=== PATIENT | female | born 1960 | race Caucasian/White ===

== ENCOUNTER 2017-05-19 11:19 | Inpatient (IN) | payer BC ==
[~2017-05-19] VITALS: Ht 152.4 cm; Wt 67.1 kg
[~2017-05-19 11:19] MED LIST: TRAM50 PO
[2017-05-19] MEDS ORDERED: IOHEXOL 350 MG/ML 10 ML VIAL (for RAD DIAG) IVCONTRAST ONE (11:20)
[2017-05-19 12:09] VITALS: BP 130/101; PULSE 151; RESP 24; TEMP 98.8; O2SAT 100
--- NOTE | 2017-05-19 12:44 | PD ---
HPI . Abdominal pain Chief Complaint: Abdominal Pain Time Seen by Provider: 12:23 Travel History International Travel<30 days: No Contact w/Intl Traveler<30days: No Traveled to known affect area: No History of Present Illness HPI This patient presents with a chief complaint of left-sided abdominal pain. Onset was 3-4 days ago. She describes an aching pain which she rates 7/10. Pain is somewhat relieved by passing gas and is exacerbated by eating. She has no associated fever and no associated urinary tract symptoms. She does report nausea, vomiting and diarrhea. She states that she had been constipated and had taken some Ex-Lax for constipation. Afterwards, she developed the nausea, vomiting and diarrhea associated with a left-sided abdominal pain. She was seen at an outside hospital 2 3 and then 2 days ago. She was diagnosed on the initial visit with diverticulitis and prescribed Cipro and Flagyl as well as Pepcid and Zofran. She states that she has attempted to take these medications but that the medications seem to be making her worse rather than better. She has not taken any medication in the past 24 hours. 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 They were concerned that she was becoming dehydrated. She states that they were also concerned about a possible abscess formation. They asked her to present us for further evaluation and treatment. PFSH Past Medical History Arthritis: No Asthma: No Autoimmune Disease: No Blood Disorders: No Anxiety: No Depression: No Heart Rhythm Problems: No Cancer: Yes (BILATERAL BREAST CA) Cardiovascular Problems: Yes (HX OF CHEST PAIN, CALCIUM DEPOSIT IN ARTERY DISLODGED, NO IA) High Cholesterol: No Chemotherapy: Yes Chest Pain: Yes Congestive Heart Failure: No COPD: No Diabetes: No Endocrine: No GERD: No Glaucoma: No Genitourinary: No Headaches: Yes Hepatitis: No Hiatal Hernia: No Hypertension: No Immune Disorder: No Kidney Stones: No Musculoskeletal: No Neurologic: No Psychiatric: No Reproductive: No Respiratory: No Myocardial Infarction: No Radiation Therapy: Yes Renal Failure: No Sickle Cell Disease: No Sleep Apnea: No Thyroid Disease: No Ulcer: No Past Surgical History Abdominal Surgery: Yes (CHOLECYSTECTOMY 2002) AICD: No Body Medical Devices: BILATERAL BREAST IMPLANTS Cardiac Surgery: No Ear Surgery: No Endocrine Surgery: No Eye Surgery: No Genitourinary Surgery: Yes Gynecologic Surgery: Yes (BILATERAL OVARIES REMOVED 2004) Joint Replacement: No Oral Surgery: No Pacemaker: No Thoracic Surgery: Yes (R BREAST LUMPECTOMY 1993, BILATERAL MASTECTOMY WITH RECONSTRUCTION 07/2001) Social History Alcohol Use: Yes Tobacco Use: No Substance Use: No Allergies-Medications (Allergen,Severity, Reaction): Coded Allergies: adhesive (Unverified Allergy, Severe, 10/08/16) PAPER TAPE [place] meperidine (Unverified Allergy, Severe, 10/08/16) NAUSEA/VOMITING metoclopramide (Unverified Allergy, Severe, 10/08/16) oxycodone (Unverified Allergy, Severe, 10/08/16) NAUSEA/VOMITING morphine (Unverified Allergy, Intermediate, Hives, 10/08/16) HIVES AT ITCHING Reported Meds & Prescriptions Reported Meds & Active Scripts Active Reported Ultram (Tramadol HCl) 50 Mg Tab 50 Mg PO Q6H PRN FOR PAIN Review of Systems Except as stated in HPI: all other systems reviewed are Neg General / Constitutional: No: Fever, Chills Gastrointestinal: Positive: Nausea, Vomiting, Diarrhea, Abdominal Pain Genitourinary: No: Urgency, Frequency, Dysuria, Hematuria, Decreased Urinary Output Physical Exam Narrative GENERAL: Patient is awake and alert. SKIN: warm/dry. Normal color and turgor. HEAD: Normocephalic. Atraumatic. EYES: Pupils equal and round. No scleral icterus. No injection or drainage. ENT: No nasal bleeding or discharge. Mucous membranes pink and moist. NECK: Trachea midline. Full range of motion without pain.. CARDIOVASCULAR: Regular rate and rhythm. RESPIRATORY: No accessory muscle use. Clear to auscultation. Breath sounds equal bilaterally. GASTROINTESTINAL: Abdomen soft. Nontender. Bowel sounds present. Nondistended. I was talking with the patient as I examined her abdomen. She had no change in her facial expression during the exam and there was no guarding and no rebound. MUSCULOSKELETAL: No obvious deformities. NEUROLOGICAL: Awake and alert. No obvious cranial nerve deficits. Motor grossly within normal limits. Normal speech. PSYCHIATRIC: Appropriate mood and affect; insight and judgment normal. Data Data Last Documented VS Vital Signs Date Time Temp Pulse Resp B/P (MAP) Pulse Ox O2 Delivery O2 Flow Rate FiO2 05/19/17 12:09 98.8 151 24 130/101 (111) 100 Orders Orders Complete Blood Count With Diff (05/19/17 12:12) Comprehensive Metabolic Panel (05/19/17 12:12) Lipase (05/19/17 12:12) Prothrombin Time / Inr (Pt) (05/19/17 12:12) Act Partial Throm Time (Ptt) (05/19/17 12:12) Urinalysis - C+S If Indicated (05/19/17 12:12) Electrocardiogram (05/19/17 ) Sodium Chlor 0.9% 1000 Ml Inj (Ns 1000 M (05/19/17 12:45) Sodium Chlor 0.9% 1000 Ml Inj (Ns 1000 M (05/19/17 12:45) Ct Abd/Pel W Iv Contrast(Rout) (05/19/17 12:35) Ondansetron Inj (Zofran Inj) (05/19/17 12:45) Iohexol 350 Inj (Omnipaque 350 Inj) (05/19/17 11:20) Consult Gastroenterology (05/19/17 ) (Hub Use Only)Inp Phy Cons/Ref (05/19/17 ) Admit Order (Ed Use Only) (05/19/17 15:21) Labs Laboratory Tests Test 05/19/17 12:50 05/19/17 13:00 White Blood Count 12.5 TH/MM3 Red Blood Count 5.74 MIL/MM3 Hemoglobin 17.2 GM/DL Hematocrit 49.7 % Mean Corpuscular Volume 86.6 FL Mean Corpuscular Hemoglobin 30.0 PG Mean Corpuscular Hemoglobin Concent 34.6 % Red Cell Distribution Width 12.2 % Platelet Count 333 TH/MM3 Mean Platelet Volume 8.2 FL Neutrophils (%) (Auto) 72.1 % Lymphocytes (%) (Auto) 19.2 % Monocytes (%) (Auto) 7.7 % Eosinophils (%) (Auto) 0.5 % Basophils (%) (Auto) 0.5 % Neutrophils # (Auto) 9.0 TH/MM3 Lymphocytes # (Auto) 2.4 TH/MM3 Monocytes # (Auto) 1.0 TH/MM3 Eosinophils # (Auto) 0.1 TH/MM3 Basophils # (Auto) 0.1 TH/MM3 CBC Comment DIFF FINAL Differential Comment Prothrombin Time 10.7 SEC Prothromb Time International Ratio 1.1 RATIO Activated Partial Thromboplast Time 23.1 SEC Blood Urea Nitrogen 18 MG/DL Creatinine 1.18 MG/DL Random Glucose 95 MG/DL Total Protein 8.3 GM/DL Albumin 3.9 GM/DL Calcium Level 9.9 MG/DL Alkaline Phosphatase 77 U/L Aspartate Amino Transf (AST/SGOT) 28 U/L Alanine Aminotransferase (ALT/SGPT) 25 U/L Total Bilirubin 2.0 MG/DL Sodium Level 135 MEQ/L Potassium Level 3.3 MEQ/L Chloride Level 98 MEQ/L Carbon Dioxide Level 23.2 MEQ/L Anion Gap 14 MEQ/L Estimat Glomerular Filtration Rate 47 ML/MIN Lipase 167 U/L Urine Color YELLOW Urine Turbidity HAZY Urine pH 6.0 Urine Specific [place] 1.013 Urine Protein 30 mg/dL Urine Glucose (UA) NEG mg/dL Urine Ketones 40 mg/dL Urine Occult Blood MOD Urine Nitrite NEG Urine Bilirubin NEG Urine Urobilinogen LESS THAN 2.0 MG/DL Urine Leukocyte Esterase SMALL Microscopic Urinalysis Comment CULT NOT INDICATED MDM Medical Decision Making Medical Screen Exam Complete: Yes Emergency Medical Condition: Yes Differential Diagnosis Differential diagnosis of abdominal pain includes but is not limited to gastritis, pancreatitis, hepatitis, gastroenteritis, constipation, urinary retention, peptic ulcer disease, diverticulitis or appendicitis Narrative Course This patient presents with left-sided abdominal pain. She has a working diagnosis of diverticulitis which has been inadequately treated. She has only had a couple of doses of her antibiotics. She is unable to tolerate oral antibiotics because of GI upset. I will repeat her CT to look for perforation or abscess. Routine labs are pending. She will be treated with IV fluids. She reports allergies to Demerol , morphine and oxycodone. I have given her Zofran for the nausea. CBC & BMP Diagram 05/19/17 12:50 Total Protein 8.3 H, Albumin 3.9, Calcium Level 9.9, Alkaline Phosphatase 77, Aspartate Amino Transf (AST/SGOT) 28, Alanine Aminotransferase (ALT/SGPT) 25, Total Bilirubin 2.0 H The H&H compared to previous indicates hemoconcentration. UA is negative for infection. CT: 1. Moderate diverticulosis greatest in the sigmoid colon with no definite inflammatory change or obstruction. 2. Parapelvic cysts and cortical cyst in the left kidney. 3. Small low-attenuation lesion in the left lobe of the liver which is nonspecific but likely represents a small cyst or cavernous hemangioma. 4. Status post cholecystectomy. Physician Communication Physician Communication Dr. Purcell Diagnosis Primary Impression: Abdominal pain Qualified Codes: R10.32 - Left lower quadrant pain Additional Impression: Dehydration Admitting Information Admitting Physician Requests: Admit Condition: Stable Chelita Trinidad MD May 19, 2017 12:44
[2017-05-19] MEDS ORDERED: ONDANSETRON HCL 4 MG/2 ML VIAL IV PUSH ONE (12:45)
[2017-05-19] MEDS ORDERED: SODIUM CHLOR 0.9% 1000 ML INJ 1,000 ML IV ONE ×2 (12:45)
[2017-05-19 13:41] LABS: BASOPHIL # 0.1 TH/MM3 (0-0.2); BASOPHIL % 0.5 % (0.0-2.0); EOSINOPHIL # 0.1 TH/MM3 (0-0.4); EOSINOPHIL % 0.5 % (0.0-4.0); HEMATOCRIT 49.7 % (35.0-46.0); HEMOGLOBIN 17.2 GM/DL (11.6-15.3); LYMPH % 19.2 % (9.0-44.0); LYMPHOCYTE # 2.4 TH/MM3 (1.0-4.8); MEAN CELL VOLUME 86.6 FL (80.0-100.0); MEAN CORPUSCULAR HGB CONC 34.6 % (32.0-36.0); MEAN PLATELET VOLUME 8.2 FL (7.0-11.0); MONO % 7.7 % (0.0-8.0); NEUT % 72.1 % (16.0-70.0); PLATELET COUNT 333 TH/MM3 (150-450); RED BLOOD COUNT 5.74 MIL/MM3 (4.00-5.30); RED CELL DISTRIBUTION WIDTH 12.2 % (11.6-17.2); WHITE BLOOD COUNT 12.5 TH/MM3 (4.0-11.0)
[2017-05-19 13:50] LABS: INTERNATIONAL NORMALIZED RATIO 1.1 RATIO; PROTHROMBIN TIME - PATIENT 10.7 SEC (9.8-11.6)
--- NOTE | 2017-05-19 13:55 | RADRPT ---
EXAM DATE/TIME: 05/19/2017 13:19 [facility] COMPARISON: No previous studies available for comparison. INDICATIONS : Left upper quadrant pain radiating to back, history of diverticulitis and colitis. IV CONTRAST: 94 cc Omnipaque 350 (iohexol) IV ORAL CONTRAST: No oral contrast ingested. RADIATION DOSE: 6.71 CTDIvol (mGy) MEDICAL HISTORY : Cardiovascular disease. Carcinoma, breast. SURGICAL HISTORY : Cholecystectomy. ENCOUNTER: Initial ACUITY: 3 days PAIN SCALE: 7/10 LOCATION: Abdomen TECHNIQUE: Volumetric scanning of the abdomen and pelvis was performed. Using automated exposure control and ad justment of the mA and/or kV according to patient size, radiation dose was kept as low as reasonably achievable to obtain optimal diagnostic quality images. DICOM format image data is available electro nically for review and comparison. FINDINGS: LOWER LUNGS: The visualized lower lungs are clear. LIVER: Homogeneous density with a small round low-density 6 mm lesion in the left lobe best seen on image #1 8 of the axial sequence. There is no dilation of the biliary tree. Status post cholecystectomy. There is mild hepatic steatosis. SPLEEN: Normal size without lesion. PANCREAS: Within normal limits. KIDNEYS: Normal in size and shape. There is no solid mass, stone or hydronephrosis. There are left parapelvic cysts as well as a cortical cyst in the lower pole. ADRENAL GLANDS: Within normal limits. VASCULAR: There is no aortic aneurysm. BOWEL/MESENTERY: There multiple diverticuli involving the sigmoid colon with no definite wall thickening or inflammato ry change. The bowel gas pattern is unremarkable. No oral contrast was given. ABDOMINAL WALL: Within normal limits. RETROPERITONEUM: There is no lymphadenopathy. BLADDER: No wall thickening or mass. REPRODUCTIVE: Within normal limits. INGUINAL: There is no lymphadenopathy or hernia. MUSCULOSKELETAL: Within normal limits for patient age. CONCLUSION: 1. Moderate diverticulosis greatest in the sigmoid colon with no definite inflammatory change or obst ruction. 2. Parapelvic cysts and cortical cyst in the left kidney. 3. Small low-attenuation lesion in the left lobe of the liver which is nonspecific but likely represe nts a small cyst or cavernous hemangioma. 4. Status post cholecystectomy. Jm Lovelace MD on May 19, 2017 at 13:49 Board Certified Radiologist. This report was verified electronically.
[2017-05-19 13:59] LABS: BILIRUBIN, URINE NEG (NEG); BLOOD, URINE MOD (NEG); GLUCOSE,URINE NEG (NEG); KETONE, URINE 40 mg/dL (NEG); NITRITE,URINE NEG (NEG); URINE COLOR YELLOW (YELLW/STRAW); URINE LEUKOCYTE ESTERASE SMALL (NEG)
[2017-05-19 14:04] LABS: ALKALINE PHOSPHATASE 77 U/L (45-117); TOTAL PROTEIN 8.3 GM/DL (6.4-8.2)
[2017-05-19 14:08] LABS: ALBUMIN 3.9 GM/DL (3.4-5.0); ALT (GPT) 25 U/L (10-53); AST (GOT) 28 U/L (15-37); BICARBONATE 23.2 MEQ/L (21.0-32.0); BLOOD UREA NITROGEN 18 MG/DL (7-18); CALCIUM 9.9 MG/DL (8.5-10.1); CHLORIDE 98 MEQ/L (98-107); CREATININE 1.18 MG/DL (0.50-1.00); GLOMERULAR FILTRATION RATE 47 ML/MIN (>89); GLUCOSE,RANDOM 95 MG/DL (74-106); SODIUM (NA) 135 MEQ/L (136-145)
[2017-05-19 16:15] VITALS: BP 180/106; PULSE 108; RESP 20; O2SAT 98
[2017-05-19] MEDS ORDERED: LOVA20TA PO (16:38)
[2017-05-19] MEDS ORDERED: THERH PO (16:38)
[2017-05-19] MEDS ORDERED: CALC1TAB87 PO (16:38)
[2017-05-19] MEDS ORDERED: OMEGCAP PO (16:38)
--- NOTE | 2017-05-19 17:03 | HHI.HP ---
[facility] Primary Care Physician Hilary Longo MD Admission Diagnosis abdominal pain, dehydration Diagnoses: International Travel<30 Days: No Contact w/Intl Traveler<30days: No Known Affected Area: No History of Present Illness 57 y/o presenting w/abdominal pain, nausea, and vomiting. Pain in upper abdomen started Friday. States she had been constipated recently and took Ducolex when she went home; afterwards, she experienced vomiting and diarrhea for two days.Vomited last on Friday. Afterwards, went to the ER in [facility], was given anti-nausea medication and a course of cipro and flagyl oral. Had severe pain after taking meds, went back to the ER. XR was performed, no change was seen, and she reports she was discharged home. Stayed home the next day, then decided to come to the hospital. Took antibiotics on Friday, Friday, Friday - stopped it Friday afternoon and felt her abdominal pain improve. +poor appetite. No fevers, SOB, chest pain (other than anxiety). Noted black appearance in vomit and bright red blood from bowel movement x1 on Friday. Has never had diverticulitis or any GI issues before. Diarrhea has mostly resolved. Continues to have abdominal pain and nausea. No further vomiting. (Gretel Purcell MD R1) Review of Systems Constitutional: COMPLAINS OF: Fatigue, Dizziness Endocrine: COMPLAINS OF: Polyuria Eyes: DENIES: Eye pain, Vision loss Ears, nose, mouth, throat: DENIES: Hearing loss, Throat pain Respiratory: DENIES: Cough, Shortness of breath Cardiovascular: COMPLAINS OF: Palpitations, DENIES: Chest pain, Syncope Gastrointestinal: DENIES: Constipation, Diarrhea Genitourinary: DENIES: Urinary frequency, Urinary incontinence Musculoskeletal: DENIES: Joint pain, Muscle aches Integumentary: DENIES: Abnormal pigmentation Hematologic/lymphatic: DENIES: Bruising Immunologic/allergic: DENIES: Eczema Neurologic: DENIES: Headache, Localized weakness, Paresthesias Psychiatric: DENIES: Confusion (Gretel Purcell MD R1) Past Family Social History Past Medical History None Past Surgical History lumpectomy 1993 bilateral mastectomy 2001, lumpectomy bilateral oophorectomy 2007 cholecystectomy 2007 (Gretel Purcell MD R1) Allergies: Coded Allergies: adhesive (Unverified Allergy, Severe, 05/19/17) PAPER TAPE [place] meperidine (Unverified Allergy, Severe, 05/19/17) NAUSEA/VOMITING metoclopramide (Unverified Allergy, Severe, 05/19/17) oxycodone (Unverified Allergy, Severe, 05/19/17) NAUSEA/VOMITING morphine (Unverified Allergy, Intermediate, Hives, 05/19/17) HIVES AT ITCHING Family History Mom: lung cancer Dad: heart disease Social History Quit smoking in 1992. 20 pack years Drinks occasionally, has 2 drinks when she does No illicit or recreational drugs Lives at home w/ and son (Gretel Purcell Danitza ARAUJO R1) Physical Exam Vital Signs Vital Signs Date Time Temp Pulse Resp B/P (MAP) Pulse Ox O2 Delivery O2 Flow Rate FiO2 05/19/17 16:15 108 20 180/106 (130) 98 Room Air 05/19/17 12:09 98.8 151 24 130/101 (111) 100 Physical Exam GENERAL: Pleasant lady laying in bed, appearing uncomfortable. SKIN: Cool and dry. HEAD: Atraumatic. Normocephalic. EYES: Pupils equal round and reactive. Extraocular motions intact. ENT: Uvula midline. Airway patent. Mucous membranes appear dry. NECK: Trachea midline. CARDIOVASCULAR: Regular rate and rhythm without murmurs, gallops, or rubs. RESPIRATORY: Clear to auscultation. GASTROINTESTINAL: Abdomen soft,non-distended. Tenderness in the left upper quadrant on palpation. MUSCULOSKELETAL: Extremities without clubbing, cyanosis, or edema. No joint tenderness, effusion, or edema noted. No calf tenderness. NEUROLOGICAL: Awake and alert. Cranial nerves II through XII intact. Motor and sensory grossly within normal limits. Normal speech. Laboratory Laboratory Tests Test 05/19/17 12:50 05/19/17 13:00 White Blood Count 12.5 Red Blood Count 5.74 Hemoglobin 17.2 Hematocrit 49.7 Mean Corpuscular Volume 86.6 Mean Corpuscular Hemoglobin 30.0 Mean Corpuscular Hemoglobin Concent 34.6 Red Cell Distribution Width 12.2 Platelet Count 333 Mean Platelet Volume 8.2 Neutrophils (%) (Auto) 72.1 Lymphocytes (%) (Auto) 19.2 Monocytes (%) (Auto) 7.7 Eosinophils (%) (Auto) 0.5 Basophils (%) (Auto) 0.5 Neutrophils # (Auto) 9.0 Lymphocytes # (Auto) 2.4 Monocytes # (Auto) 1.0 Eosinophils # (Auto) 0.1 Basophils # (Auto) 0.1 CBC Comment DIFF FINAL Differential Comment Prothrombin Time 10.7 Prothromb Time International Ratio 1.1 Activated Partial Thromboplast Time 23.1 Blood Urea Nitrogen 18 Creatinine 1.18 Random Glucose 95 Total Protein 8.3 Albumin 3.9 Calcium Level 9.9 Alkaline Phosphatase 77 Aspartate Amino Transf (AST/SGOT) 28 Alanine Aminotransferase (ALT/SGPT) 25 Total Bilirubin 2.0 Sodium Level 135 Potassium Level 3.3 Chloride Level 98 Carbon Dioxide Level 23.2 Anion Gap 14 Estimat Glomerular Filtration Rate 47 Lipase 167 Urine Color YELLOW Urine Turbidity HAZY Urine pH 6.0 Urine Specific [place] 1.013 Urine Protein 30 Urine Glucose (UA) NEG Urine Ketones 40 Urine Occult Blood MOD Urine Nitrite NEG Urine Bilirubin NEG Urine Urobilinogen LESS THAN 2.0 Urine Leukocyte Esterase SMALL Microscopic Urinalysis Comment CULT NOT INDICATED (Gretel Purcell MD R1) Result Diagram: 05/19/17 1250 05/19/17 1250 Imaging 05/19 CT abdomen w/IV contrast CONCLUSION: 1. Moderate diverticulosis greatest in the sigmoid colon with no definite inflammatory change or obstruction. 2. Parapelvic cysts and cortical cyst in the left kidney. 3. Small low-attenuation lesion in the left lobe of the liver which is nonspecific but likely represents a small cyst or cavernous hemangioma. 4. Status post cholecystectomy. (Gretel Purcell MD R1) Caprini VTE Risk Assessment Caprini VTE Risk Assessment: No/Low Risk (score <= 1) Caprini Risk Assessment Model Point Value = 1 Point Value = 2 Point Value = 3 Point Value = 5 Age 41-60 Minor surgery BMI > 25 kg/m2 Swollen legs Varicose veins or History of unexplained or recurrent spontaneous Oral contraceptives or hormone replacement Sepsis (< 1 month) Serious lung disease, including pneumonia (< 1 month) Abnormal pulmonary function Acute myocardial infarction Congestive heart failure (< 1 month) History of inflammatory bowel disease Medical patient at bed rest Age 61-74 Arthroscopic surgery Major open surgery (> 45 min) Laparoscopic surgery (> 45 min) Malignancy Confined to bed (> 72 hours) Immobilizing plaster cast Central venous access Age >= 75 History of VTE Family history of VTE Factor V Leiden Prothrombin [id number] Lupus anticoagulant Anticardiolipin antibodies Elevated serum homocysteine Heparin-induced thrombocytopenia Other congenital or acquired thrombophilia Stroke (< 1 month) Elective arthroplasty Hip, pelvis, or leg fracture Acute spinal cord injury (< 1 month) Prophylaxis Regimen Total Risk Factor Score Risk Level Prophylaxis Regimen 0-1 Low Early ambulation 2 Moderate Order ONE of the following: *Sequential Compression Device (SCD) *Heparin 5000 units SQ BID 3-4 Higher Order ONE of the following medications: *Heparin 5000 units SQ TID *Enoxaparin/Lovenox 40 mg SQ daily (WT < 150 kg, CrCl > 30 mL/min) *Enoxaparin/Lovenox 30 mg SQ daily (WT < 150 kg, CrCl > 10-29 mL/min) *Enoxaparin/Lovenox 30 mg SQ BID (WT < 150 kg, CrCl > 30 mL/min) AND/OR *Sequential Compression Device (SCD) 5 or more Highest Order ONE of the following medications: *Heparin 5000 units SQ TID (Preferred with Epidurals) *Enoxaparin/Lovenox 40 mg SQ daily (WT < 150 kg, CrCl > 30 mL/min) *Enoxaparin/Lovenox 30 mg SQ daily (WT < 150 kg, CrCl > 10-29 mL/min) *Enoxaparin/Lovenox 30 mg SQ BID (WT < 150 kg, CrCl > 30 mL/min) AND *Sequential Compression Device (SCD) (Gretel Purcell MD R1) Assessment and Plan Assessment and Plan Patient is a 57 y/o F admitted for acute diverticulitis s/p 3 days oral antibiotics and dehydration. CT abdomen shows no active disease; however, patient has had difficulty w/PO intake. Will start IVF, continue antibiotics in IV form, and provide pain control. GI was consulted, appreciate recs. (Gretel Purcell MD R1) Attending Attestation THIS CASE WAS DISCUSSED WITH THE RESIDENT PHYSICIANS. I HAVE REVIEWED THE RECORD AND AGREE WITH THE ABOVE NOTE AND PLAN OF CARE WAS DISCUSSED. I HAVE AUTHORIZED THE ORDER FOR ADMISSION TO AN IN-PATIENT STATUS. (Melinda Kiran MD) Problem List: (1) Acute diverticulitis ICD Codes: K57.92 - Diverticulitis of intestine, part unspecified, without perforation or abscess without bleeding Plan: Diagnosed last week, has had difficulty taking oral antibiotics Elevated WBC count Tachycardic NPO except meds IVF @ maintenance IV cipro q12H and flagyl q8H Monitor daily CBC Tylenol 650 PO Q6H pain 1-2 Toradol 15 mg IV q6H pain 3-5 Toradol 30 mg IV q6H pain 6-10 Breakthrough pain IV Dilaudid q3H (aware that patient has had N/V as adverse reaction to opiates, will provide IV Zofran PRN) (2) SIRS (systemic inflammatory response syndrome) ICD Codes: R65.10 - Systemic inflammatory response syndrome (SIRS) of non- infectious origin without acute organ dysfunction Plan: See above plan Blood cx ordered (3) Bright red blood per rectum ICD Codes: K62.5 - Hemorrhage of anus and rectum Plan: Hgb elevated on admission (likely due to hemoconcentration) Per patient hx, saw bright red blood per rectum last week. Has not noticed since Will order hemoccult stool (4) Dehydration ICD Codes: E86.0 - Dehydration Status: Acute Plan: Appeared hemoconcentrated on admission Maintenance IV hydration (5) FEN Plan: Fluids: maintenance Electrolytes: replete as needed Nutrition: NPO DVT prophy: not indicated (Gretel Purcell MD R1) Physician Certification 2 Midnight Certification Type: Admission for Inpatient Services Order for Inpatient Services The services are ordered in accordance with Medicare regulations or non- Medicare payer requirements, as applicable. In the case of services not specified as inpatient-only, they are appropriately provided as inpatient services in accordance with the 2-midnight benchmark. Estimated LOS (days): 2 2 days is the estimated time the patient will need to remain in the hospital, assuming treatment plan goals are met and no additional complications. Post-Hospital Plan: Home (Gretel Purcell MD R1) 2 Midnight Certification Type: Admission for Inpatient Services (Melinda Kiran MD) Gretel Purcell MD R1 May 19, 2017 17:03 Melinda Kiran MD May 19, 2017 19:21
--- NOTE | 2017-05-19 17:25 | PD.CONS ---
HPI History of Present Illness This is a 57 year old F who presented to the [place] ER with complaints of left sided abdominal pain, nausea, vomiting, diarrhea. States symptoms began on Friday night, was initially constipated, took a Dulcolax and symptoms began soon after. She has been seen twice at [facility] for this, once on the and once on the . CT abdomen and pelvis done on May 16 revealed findings consistent with proctocolitis with no pericolonic abscess evident. There is also extensive sigmoid diverticulosis. Previous cholecystectomy. Hepatic and renal cysts. There is pelvocaliectasis vs parapelvic cysts bilaterally, more prominent on the left side. Pt was discharged with Cipro and Flagyl. Reports that she was unable to tolerate the antibiotics and was unable to take them. Pain is currently located on left side, states better after passing gas and seems to be worse after eating, also complaining of pain in her epigastric area. Associated nausea and vomiting, states when vomiting began it appeared to be dark blood in it, now only bile colored. Reports some blood on the toilet paper when she wipes but no mark blood mixed in the stool, denies melena. Denies fever, recent abx prior to ones prescribed at [facility], hx of C. Diff, sick contacts, recent travel. Last EGD approx 5 years ago and she thinks exam was normal. Last colonoscopy was Mar 2016 and states found polyps and hemorrhoids. Occasional ETOH. Denies smoking, NSAIDs. (Siria Grewal) [facility] Coded Allergies: adhesive (Unverified Allergy, Severe, 05/19/17) PAPER TAPE [place] meperidine (Unverified Allergy, Severe, 05/19/17) NAUSEA/VOMITING metoclopramide (Unverified Allergy, Severe, 05/19/17) oxycodone (Unverified Allergy, Severe, 05/19/17) NAUSEA/VOMITING morphine (Unverified Allergy, Intermediate, Hives, 05/19/17) HIVES AT ITCHING Social History Occasional ETOH Denies smoking (Siria Grewal) Review of Systems Gastrointestinal: COMPLAINS OF: Abdominal pain, Diarrhea, Nausea, Vomiting, DENIES: Black stools, Bloody stools, Constipation, Difficulty Swallowing, Odynophagia, Swelling of Abdomen, Heartburn, Hematemesis (Siria Grewal) GI Exam Vitals I&O Vital Signs Date Time Temp Pulse Resp B/P (MAP) Pulse Ox O2 Delivery O2 Flow Rate FiO2 05/19/17 16:15 108 20 180/106 (130) 98 Room Air 05/19/17 12:09 98.8 151 24 130/101 (111) 100 I/O 05/18/17 05/18/17 05/18/17 05/19/17 05/19/17 05/19/17 07:00 15:00 23:00 07:00 15:00 23:00 Intake Total 2000 ml Balance 2000 ml Intake IV Total 2000 ml Laboratory Test 05/19/17 12:50 05/19/17 13:00 White Blood Count 12.5 TH/MM3 Red Blood Count 5.74 MIL/MM3 Hemoglobin 17.2 GM/DL Hematocrit 49.7 % Mean Corpuscular Volume 86.6 FL Mean Corpuscular Hemoglobin 30.0 PG Mean Corpuscular Hemoglobin Concent 34.6 % Red Cell Distribution Width 12.2 % Platelet Count 333 TH/MM3 Mean Platelet Volume 8.2 FL Neutrophils (%) (Auto) 72.1 % Lymphocytes (%) (Auto) 19.2 % Monocytes (%) (Auto) 7.7 % Eosinophils (%) (Auto) 0.5 % Basophils (%) (Auto) 0.5 % Neutrophils # (Auto) 9.0 TH/MM3 Lymphocytes # (Auto) 2.4 TH/MM3 Monocytes # (Auto) 1.0 TH/MM3 Eosinophils # (Auto) 0.1 TH/MM3 Basophils # (Auto) 0.1 TH/MM3 CBC Comment DIFF FINAL Differential Comment Prothrombin Time 10.7 SEC Prothromb Time International Ratio 1.1 RATIO Activated Partial Thromboplast Time 23.1 SEC Blood Urea Nitrogen 18 MG/DL Creatinine 1.18 MG/DL Random Glucose 95 MG/DL Total Protein 8.3 GM/DL Albumin 3.9 GM/DL Calcium Level 9.9 MG/DL Alkaline Phosphatase 77 U/L Aspartate Amino Transf (AST/SGOT) 28 U/L Alanine Aminotransferase (ALT/SGPT) 25 U/L Total Bilirubin 2.0 MG/DL Sodium Level 135 MEQ/L Potassium Level 3.3 MEQ/L Chloride Level 98 MEQ/L Carbon Dioxide Level 23.2 MEQ/L Anion Gap 14 MEQ/L Estimat Glomerular Filtration Rate 47 ML/MIN Lipase 167 U/L Urine Color YELLOW Urine Turbidity HAZY Urine pH 6.0 Urine Specific [place] 1.013 Urine Protein 30 mg/dL Urine Glucose (UA) NEG mg/dL Urine Ketones 40 mg/dL Urine Occult Blood MOD Urine Nitrite NEG Urine Bilirubin NEG Urine Urobilinogen LESS THAN 2.0 MG/DL Urine Leukocyte Esterase SMALL Microscopic Urinalysis Comment CULT NOT INDICATED Physical Examination HEENT: Normocephalic; atraumatic CHEST: Even/unlabored CARDIAC: RRR ABDOMEN: Soft, nondistended, nontender; bowel sounds active EXTREMITIES: No clubbing, cyanosis, or edema. SKIN: Normal; no rash; no jaundice. BABY DOCTOR: No focal deficits; alert and oriented times three. (Siria Grewal) Assessment and Plan Plan Assessment: - Diarrhea- states started on Friday after taking Dulcolax for constipation. Reports blood on toilet paper when she wipes, denies mark blood mixed with stool and melena. Denies recent abx prior to ones prescribed at , fever, sick contacts, history of C. Diff, recent travel CT abdomen and pelvis from today --> Moderate diverticulosis greatest in sigmoid colon with no definite inflammatory change or obstruction. Parapelvic cysts and cortical cyst in the left kidney. Small low-attenuation lesion in left lobe of the liver which is non- specific but likely represents a small cyst or cavernous hemangioma CT abdomen and pelvis at [facility] (05/16) --> findings consistent with proctocolitis with no pericolonic abscess evident. There is also extensive sigmoid diverticulosis. Previous cholecystectomy. Hepatic and renal cysts. There is pelvocaliectasis vs parapelvic cysts bilaterally, more prominent on the left side. Pt was discharged with Cipro and Flagyl. She states was unable to tolerate them. Last colonoscopy was Mar 2016 states polyps and hemorrhoids - Nausea and vomiting, began at same time as diarrhea- states initially noticed dark red blood, now bile colored. Hgb stable. Last EGD was 5 years ago and she thinks normal exam. - Abdominal pain- nonspecific- according to ER records was LLQ now seems to be more left upper with some epigastric pain. - Weight loss- states 10 lbs over the past month. - Hyperbilirubinemia- unclear significance- T bili-2. Previous cholecystectomy Plan: EGD/Flex sigmoidoscopy tomorrow Obtain consent NPO after MN SSE X 2 in AM Stool studies Further recommendations based on findings of above Pt has been seen and examined by myself and Dr. Gale and this note is written on his behalf (Siria Grewal) Physician Comments Patient seen and examined Agree with above Continue with current supportive care Monitor lab We will proceed with an EGD and a flexible sigmoidoscopy tomorrow We will also check direct and indirect bilirubin and follow labs (Arcadio Gale MD) Siria Grewal May 19, 2017 17:25 Arcadio Gale MD May 19, 2017 23:45
[2017-05-19] MEDS ORDERED: ONDANSETRON HCL 4 MG/2 ML VIAL IV PUSH PRN (17:30)
[2017-05-19] MEDS ORDERED: ACETAMINOPHEN 325 MG TAB PO PRN ×2 (17:30→19:00)
[2017-05-19] MEDS ORDERED: SODIUM CHLORIDE 0.9% FLUSH 10 ML FLUSH IV FLUSH PRN (17:30)
[2017-05-19] MEDS ORDERED: ACETAMINOPHEN/HYDROcodone 325 MG/5 MG TAB PO PRN (17:30)
[2017-05-19 17:42] VITALS: BP 172/100
[2017-05-19] MEDS: SODIUM CHLOR 0.9% 1000 ML INJ 1,000 ML IV SCH (18:20)
[2017-05-19] MEDS: metroNIDAZOLE 500 MG INJ 100 ML IV SCH (18:48)
[2017-05-19] MEDS ORDERED: KETOROLAC TROMETHAMINE 30 MG/ML (IVP) VIAL IV PUSH PRN ×2 (19:00)
[2017-05-19] MEDS ORDERED: NALOXONE HCL 0.4 MG/ML AMP IV PUSH PRN (19:00)
[2017-05-19] MEDS ORDERED: POTASSIUM CHLORIDE 20 MEQ CONTROLLED RELEASE TAB PO ONE (19:00)
[2017-05-19] MEDS ORDERED: HYDROmorphone HCL PF 2 MG/ML VIAL IV PUSH PRN (19:00)
[2017-05-19] MEDS: CIPROFLOXACIN 400 MG PREMIX 200 ML IV SCH (19:40)
[2017-05-19] MEDS: SODIUM CHLORIDE 0.9% FLUSH 10 ML FLUSH IV FLUSH SCH (19:41)
[2017-05-19 20:00] VITALS: BP 197/103; PULSE 88; RESP 17; TEMP 97.5; O2SAT 98
[2017-05-19 21:45] VITALS: BP 134/83
[2017-05-20] VITALS: BP 155/95; PULSE 92; RESP 18; TEMP 98; O2SAT 99
[2017-05-20] MEDS: metroNIDAZOLE 500 MG INJ 100 ML IV SCH ×3 (02:13→20:05)
[2017-05-20] MEDS: SODIUM CHLOR 0.9% 1000 ML INJ 1,000 ML IV SCH ×3 (02:15→23:30)
[2017-05-20] MEDS ORDERED: LACTATED RINGER'S 1000 ML IV PRN (04:45)
[2017-05-20 05:26] LABS: AUTOMATED NEUTROPHIL # 6.9 TH/MM3 (1.8-7.7); BASOPHIL # 0.1 TH/MM3 (0-0.2); BASOPHIL % 0.6 % (0.0-2.0); EOSINOPHIL # 0.2 TH/MM3 (0-0.4); EOSINOPHIL % 1.9 % (0.0-4.0); HEMOGLOBIN 14.9 GM/DL (11.6-15.3); LYMPH % 23.3 % (9.0-44.0); LYMPHOCYTE # 2.5 TH/MM3 (1.0-4.8); MEAN CELL VOLUME 87.1 FL (80.0-100.0); MEAN CORPUSCULAR HEMOGLOBIN 30.3 PG (27.0-34.0); MEAN CORPUSCULAR HGB CONC 34.8 % (32.0-36.0); MEAN PLATELET VOLUME 8.2 FL (7.0-11.0); MONOCYTE # 0.9 TH/MM3 (0-0.9); NEUT % 65.2 % (16.0-70.0); PLATELET COUNT 256 TH/MM3 (150-450); RED BLOOD COUNT 4.93 MIL/MM3 (4.00-5.30); RED CELL DISTRIBUTION WIDTH 12.1 % (11.6-17.2); WHITE BLOOD COUNT 10.5 TH/MM3 (4.0-11.0)
[2017-05-20 06:13] LABS: ALBUMIN 3.1 GM/DL (3.4-5.0); ALKALINE PHOSPHATASE 71 U/L (45-117); ALT (GPT) 22 U/L (10-53); AST (GOT) 16 U/L (15-37); BICARBONATE 24.7 MEQ/L (21.0-32.0); BLOOD UREA NITROGEN 14 MG/DL (7-18); CALCIUM 8.7 MG/DL (8.5-10.1); CHLORIDE 104 MEQ/L (98-107); CREATININE 0.88 MG/DL (0.50-1.00); DIRECT BILIRUBIN ADULT 0.3 MG/DL (0.0-0.2); GLOMERULAR FILTRATION RATE 66 ML/MIN (>89); GLUCOSE,RANDOM 86 MG/DL (74-106); SODIUM (NA) 138 MEQ/L (136-145); TOTAL BILIRUBIN ADULT 1.5 MG/DL (0.2-1.0)
[2017-05-20 08:00] VITALS: BP 154/94; PULSE 112; RESP 17; TEMP 98.4; O2SAT 97
[2017-05-20] MEDS ORDERED: ACETAMINOPHEN 1000 MG/100 ML 100 ML IV PRN (08:15)
[2017-05-20] MEDS: CIPROFLOXACIN 400 MG PREMIX 200 ML IV SCH ×2 (09:22→20:05)
[2017-05-20] MEDS: SODIUM CHLORIDE 0.9% FLUSH 10 ML FLUSH IV FLUSH SCH ×2 (09:34→20:05)
[2017-05-20] MEDS: PANTOPRAZOLE SODIUM 40 MG VIAL IV PUSH SCH ×2 (09:36→20:05)
--- NOTE | 2017-05-20 11:46 | HHI.FPPN ---
Addendum to progress note ADDENDUM Reason for addendum: Additonal documentation Additional information see resident history and physical for complete history. patient with h/o colon polyps was admitted for dehydration, possible diverticulitis and possible GI bleed. On labs and clinically the patient appeared to be dehydrated -- likely secondary to poor PO intake along with vomiting and diarrhea. The patient reports her GI symptoms are improved, she is still nauseated and is spitting up/bile but no food. She states her diarrhea is still present but she has very little amounts. She has been NPO pending GO procedure today. She did have episode of BRBPR, stools were Hemoccult positive and patient with know history of colon polyps and hemorrhoids. She denies any tarry stools or further bleeding at this time. She overall feels less dizzy and a little better today CT from shows proctocolitis and diverticulosis CT from 05/19 Half shows diverticulosis with no overt inflammation on exam Last 24 hours Impressions Abdomen/Pelvis CT 05/19/17 1235 Signed Impressions: Service Date/Time: Friday, May 19, 2017 13:19 - CONCLUSION: 1. Moderate diverticulosis greatest in the sigmoid colon with no definite inflammatory change or obstruction. 2. Parapelvic cysts and cortical cyst in the left kidney. 3. Small low-attenuation lesion in the left lobe of the liver which is nonspecific but likely represents a small cyst or cavernous hemangioma. 4. Status post cholecystectomy. Jm Lovelace MD Vital Signs Date Time Temp Pulse Resp B/P (MAP) Pulse Ox O2 Delivery O2 Flow Rate FiO2 05/20/17 08:00 98.4 112 17 154/94 (114) 97 05/20/17 06:16 20 05/20/17 00:00 98.0 92 18 155/95 (115) 99 05/19/17 21:45 134/83 (100) 05/19/17 21:00 20 05/19/17 20:00 97.5 88 17 197/103 (134) 98 05/19/17 17:42 100 18 172/100 (124) 98 05/19/17 16:15 108 20 180/106 (130) 98 Room Air 05/19/17 12:09 98.8 151 24 130/101 (111) 100 Laboratory Tests Test 05/19/17 12:50 05/19/17 13:00 05/20/17 03:46 05/20/17 04:30 Prothrombin Time 10.7 SEC Prothromb Time International Ratio 1.1 RATIO Activated Partial Thromboplast Time 23.1 SEC Lipase 167 U/L Urine Color YELLOW Urine Turbidity HAZY Urine pH 6.0 Urine Specific [place] 1.013 Urine Protein 30 mg/dL Urine Glucose (UA) NEG mg/dL Urine Ketones 40 mg/dL Urine Occult Blood MOD Urine Nitrite NEG Urine Bilirubin NEG Urine Urobilinogen LESS THAN 2.0 MG/DL Urine Leukocyte Esterase SMALL Microscopic Urinalysis Comment CULT NOT INDICATED White Blood Count 10.5 TH/MM3 Red Blood Count 4.93 MIL/MM3 Hemoglobin 14.9 GM/DL Hematocrit 43.0 % Mean Corpuscular Volume 87.1 FL Mean Corpuscular Hemoglobin 30.3 PG Mean Corpuscular Hemoglobin Concent 34.8 % Red Cell Distribution Width 12.1 % Platelet Count 256 TH/MM3 Mean Platelet Volume 8.2 FL Neutrophils (%) (Auto) 65.2 % Lymphocytes (%) (Auto) 23.3 % Monocytes (%) (Auto) 9.0 % Eosinophils (%) (Auto) 1.9 % Basophils (%) (Auto) 0.6 % Neutrophils # (Auto) 6.9 TH/MM3 Lymphocytes # (Auto) 2.5 TH/MM3 Monocytes # (Auto) 0.9 TH/MM3 Eosinophils # (Auto) 0.2 TH/MM3 Basophils # (Auto) 0.1 TH/MM3 CBC Comment DIFF FINAL Differential Comment Blood Urea Nitrogen 14 MG/DL Creatinine 0.88 MG/DL Random Glucose 86 MG/DL Total Protein 7.0 GM/DL Albumin 3.1 GM/DL Calcium Level 8.7 MG/DL Alkaline Phosphatase 71 U/L Aspartate Amino Transf (AST/SGOT) 16 U/L Alanine Aminotransferase (ALT/SGPT) 22 U/L Total Bilirubin 1.5 MG/DL Direct Bilirubin 0.3 MG/DL Sodium Level 138 MEQ/L Potassium Level 4.0 MEQ/L Chloride Level 104 MEQ/L Carbon Dioxide Level 24.7 MEQ/L Anion Gap 9 MEQ/L Estimat Glomerular Filtration Rate 66 ML/MIN Stool C. difficile Toxin (PCR) NEGATIVE Stl C. difficile Toxin Epiderm 027 PRESUMPTIVE NEGATIVE Gen -- awake, alert and attentive, she appears a little uncomfortable in bed HEENT - OP clear, PERRL, sclera anicteric and noninjected PULM - clear bilaterally, no wheezing, no crackles CARDS -- rrr, no murmurs ABD -- s, bowel sounds present, no rebound, no guarding, minimal tenderness in her abdomen EXT - MAEW, 5/5 strength legs/arms, no edema, no calf tenderness NEURO - speech is normal, grossly intact, oriented times three SKIN - no lesions, no rashes - no CVA tenderness AP 1. Diarrhea/n/v -- may be viral, her C.dif is presumptive negative, additional stool cultures pending. IVF for associated dehydration, supportive care 2. Proctocolitis -- cont the cipro/flagyl at this time 3. BRBRP/Hemoccult positive stools - unclear if this may be overt GI bleed -- her initial HgB she appeared pretty hemoconcentrated -- her H/H today is down but could be due to the IVF hydration for this patient. EGD and flex/ sig pending for today. Will repeat H/H later as well to ensure this has stabilized and she is not actively bleeding. Patient seen and dw the resident team -- Dr. Casas, Dr. Banks, Dr. Binh Kiran,Melinda Griffin MD May 20, 2017 11:46
[2017-05-20 12:00] VITALS: BP 145/114; PULSE 106; RESP 19; TEMP 98.7; O2SAT 99
[2017-05-20] MEDS ORDERED: LIDOCAINE HCL 1% PF 5 ML SYRINGE OTHER ONE (12:00)
[2017-05-20] MEDS ORDERED: PHENYLEPH/NS 1000 MCG/10 ML SYR IV ONE (12:00)
[2017-05-20] MEDS ORDERED: PROPOFOL 200 MG/20 ML AMP IV ONE (12:00)
--- NOTE | 2017-05-20 15:53 | EKG ---
Date Performed: 05/19/2017 Time Performed: 16:25:59 PTAGE: 57 years EKG: SINUS TACHYCARDIA NONSPECIFIC T-WAVE ABNORMALITY ABNORMAL RHYTHM ECG PREVIOUS TRACING : 12/15/2012 11.23 Poor R-wave progression, but largely unchanged DOCTOR: Fabrizio Vaughan Interpretating Date/Time 05/20/2017 15:52:35
--- NOTE | 2017-05-20 19:35 | PD.PROCEDR ---
GI Procedure PROCEDURE PERFORMED EGD with biopsy followed by flexible sigmoidoscopy with biopsy INDICATION FOR PROCEDURE Diarrhea, rectal bleeding, nausea and vomiting, abdominal pain, weight loss PROCEDURE: The procedure, risks and benefits were discussed with Ms. Reid and informed consent was obtained. Anesthesia sedated her with Diprivan. She was placed in the left lateral decubitus position. EGD: The Pentax videoscope was introduced through the oropharynx and advanced to the second portion of the duodenum under direct visualization. Retroflexion was performed in the stomach. FINDINGS: The esophagus there was distal esophageal mucosal erythema with friability consistent with reflux esophagitis this was biopsied The stomach there was patchy erythema in the antrum no ulcerations no erosions no blood or bleeding the rest of the stomach was unremarkable antral biopsies were taken for further evaluation The duodenum there was patchy erythema with some nodularity noted in the duodenal bulb and duodenal sweep this is of unclear significance this was biopsied Flexible Sigmoidoscopy: The Pentax videoscope was introduced through the rectum and advanced to the sigmoid. Retroflexion was performed in the rectum. Colonic prep was fair FINDINGS: There is a scope was slowly withdrawn colonic mucosa was carefully inspected this was noted to be unremarkable and within normal limits the patient was noted to have moderately severe diverticulosis of the sigmoid region retroflexion in the rectum did reveal grade 2 internal hemorrhoids and rectal examination also reveals moderately sized external hemorrhoids ESTIMATED BLOOD LOSS: None SPECIMENS REMOVED: Esophageal, gastric, duodenal, sigmoid biopsies COMPLICATIONS: None IMPRESSION: Reflux esophagitis Gastritis Duodenitis Diverticulosis Internal and external hemorrhoids PLAN: Await biopsies High-fiber diet PPI EGD in 2 months Continue with current supportive care If diarrhea persists okay to use antidiarrheal medications Recommend hemorrhoidal care with ointments and suppositories on discharge such as Anusol HC suppositories If rectal bleeding persists then patient will need to have hemorrhoidal therapy with colorectal surgery Arcadio Gale MD May 20, 2017 19:35
[2017-05-20 20:00] VITALS: BP 152/80; PULSE 78; RESP 20; TEMP 98.4; O2SAT 95
[2017-05-20 20:29] LABS: HEMATOCRIT 42.3 % (35.0-46.0); HEMOGLOBIN 14.5 GM/DL (11.6-15.3)
[2017-05-21 00:25] VITALS: BP 160/80; PULSE 70; RESP 18; TEMP 98.1; O2SAT 96
[2017-05-21] MEDS: metroNIDAZOLE 500 MG INJ 100 ML IV SCH ×3 (02:14→18:30)
[2017-05-21 08:00] VITALS: BP 139/86; PULSE 96; RESP 17; TEMP 97.7; O2SAT 96
--- NOTE | 2017-05-21 08:46 | HHI.FPPN ---
Subjective Remarks Patient states she is doing much better today. Had some stomach aches with trying to eat food today, feels more comfortable going home tomorrow. No nausea or vomiting, no melena, hematochezia, or diarrhea. Blood pressures have been 145 /114-160/80. No complaints. (Gretel Purcell MD R1) Objective Vitals Vital Signs Date Time Temp Pulse Resp B/P (MAP) Pulse Ox O2 Delivery O2 Flow Rate FiO2 05/21/17 00:25 98.1 70 18 160/80 (106) 96 05/20/17 20:00 98.4 78 20 152/80 (104) 95 05/20/17 17:22 98.6 96 18 128/85 (99) 96 05/20/17 12:00 98.7 106 19 145/114 (124) 99 I/O 05/20/17 05/20/17 05/20/17 05/21/17 05/21/17 05/21/17 07:00 15:00 23:00 07:00 15:00 23:00 Intake Total 300 ml 580 ml Balance 300 ml 580 ml Intake Oral 0 ml 580 ml Other 300 ml # Voids 3 1 2 3 # Bowel Movements 2 1 (Gretel Purcell MD R1) Result Diagram: 05/20/17193705/20/17 0346 Objective Remarks Gen -- awake, alert and attentive, she appears comfortable HEENT - EOM intact PULM - clear bilaterally, no wheezing, no crackles CARDS -- rrr, no murmurs ABD -- s, bowel sounds present, no rebound, no guarding, no tenderness in her abdomen EXT - normal ROM NEURO - speech is normal, grossly intact SKIN - no lesions, no rashes (Gretel Purcell MD R1) A/P Assessment and Plan Patient is a 57 y/o F admitted for acute diverticulitis s/p 3 days oral antibiotics and dehydration. CT abdomen showed no active disease; however, patient had difficulty w/PO intake and was unable to take medications. Started on IVF, abx, and provide pain control. GI was consulted, appreciate recs. Patient has improved significantly today, will discontinue fluids. Discharge Planning Patient states she has been having trouble eating. Medically, she appears ready for discharge. Will check on her later this afternoon. If doing better and more comfortable w/going home, plan for D/C today w/ antibiotics, PPI, and GI follow up. (Gretel Purcell MD R1) Attending Attestation Patient seen and examined. Case reviewed and discussed with the resident team. Agree with plan of care as discussed with me and documented in the resident note. Patient clinically is much better since admission -- no nausea or vomiting. She did not eat breakfast and is tolerating lunch but she is having some intermittent abdominal pain. Her abd exam is normal today. Will keep overnight for monitoring -- if no new issues plan for dc in the am. (Melinda Kiran MD) Problem List: (1) Acute diverticulitis ICD Codes: K57.92 - Diverticulitis of intestine, part unspecified, without perforation or abscess without bleeding Plan: Diagnosed last week, has had difficulty taking oral antibiotics Improved today Regular diet IV cipro q12H and flagyl q8H, transition to PO for DC today Monitor daily CBC Tylenol for pain control on DC (2) SIRS (systemic inflammatory response syndrome) ICD Codes: R65.10 - Systemic inflammatory response syndrome (SIRS) of non- infectious origin without acute organ dysfunction Status: Resolved Plan: See above plan (3) Bright red blood per rectum ICD Codes: K62.5 - Hemorrhage of anus and rectum Plan: Hgb elevated on admission (likely due to hemoconcentration) Per patient hx, saw bright red blood per rectum last week. Has not noticed since Hemoccult stool + Per EGD and flexible sigmoidoscopy on 05/20: Distal esophageal mucosal erythema, and patchy erythema in the antrum and duodenum - impression of GERD, gastritis, and duodenitis Severe diverticulosis of sigmoid region w/internal and external hemorrhoids Appreciate GI recs: will continue PPI and refer for GI follow Will provide hemorrhoidal care on discharge (4) Dehydration ICD Codes: E86.0 - Dehydration Status: Resolved Plan: Appeared hemoconcentrated on admission Improved, IVF discontinued (5) FEN Plan: Fluids: PO Electrolytes: replete as needed Nutrition: reg diet DVT prophy: not indicated GI prophy: IV protonix 40 BID, will transition to PO (Gretel Purcell MD R1) Gretel Purcell MD R1 May 21, 2017 08:46 Melinda Kiran MD May 21, 2017 16:28
[2017-05-21] MEDS: SODIUM CHLORIDE 0.9% FLUSH 10 ML FLUSH IV FLUSH SCH ×2 (09:00→20:03)
[2017-05-21] MEDS ORDERED: PANTOPRAZOLE SOD 40 MG DELAYED RELEASE TAB PO SCH (09:00)
[2017-05-21] MEDS: CIPROFLOXACIN 400 MG PREMIX 200 ML IV SCH ×2 (09:02→20:03)
[2017-05-21 12:00] VITALS: BP 166/96; PULSE 77; RESP 17; TEMP 97.6; O2SAT 99
--- NOTE | 2017-05-21 13:52 | HHI.GIFU ---
Subjective Remarks Patient sitting up in bed Laughing talking symptoms more controlled, no nausea vomiting Afebrile Stable at 14.5 (Anh Burris) Objective Vitals I&O Vital Signs Date Time Temp Pulse Resp B/P (MAP) Pulse Ox O2 Delivery O2 Flow Rate FiO2 05/21/17 12:00 97.6 77 17 166/96 (119) 99 05/21/17 08:00 97.7 96 17 139/86 (103) 96 05/21/17 00:25 98.1 70 18 160/80 (106) 96 05/20/17 20:00 98.4 78 20 152/80 (104) 95 05/20/17 17:22 98.6 96 18 128/85 (99) 96 I/O 05/20/17 05/20/17 05/20/17 05/21/17 05/21/17 05/21/17 07:00 15:00 23:00 07:00 15:00 23:00 Intake Total 300 ml 580 ml Balance 300 ml 580 ml Intake Oral 0 ml 580 ml Other 300 ml # Voids 3 1 2 3 # Bowel Movements 2 1 Laboratory Laboratory Tests Test 05/20/17 19:38 Hemoglobin 14.5 Hematocrit 42.3 Date/Time Source Procedure Growth Status 05/20/17 03:46 Blood Peripheral Aerobic Blood Culture - Preliminary NO GROWTH IN 1 DAY Resulted 05/20/17 03:46 Blood Peripheral Anaerobic Blood Culture - Preliminary NO GROWTH IN 1 DAY Resulted 05/20/17 04:30 Stool Stool Stool Occult Blood (NASH) - Final HEMOCCULT POSITIVE Complete Imaging Last Impressions Abdomen/Pelvis CT 05/19/17 1235 Signed Impressions: Service Date/Time: Friday, May 19, 2017 13:19 - CONCLUSION: 1. Moderate diverticulosis greatest in the sigmoid colon with no definite inflammatory change or obstruction. 2. Parapelvic cysts and cortical cyst in the left kidney. 3. Small low-attenuation lesion in the left lobe of the liver which is nonspecific but likely represents a small cyst or cavernous hemangioma. 4. Status post cholecystectomy. Jm Lovelace MD Physical Exam HEENT: Pupils round and reactive to light; normocephalic; atraumatic; speech clear NECK: Neck is supple, CHEST: Chest is clear to auscultation and percussion. CARDIAC: Regular rate and rhythm ABDOMEN: Soft, nondistended, nontender; no hepatosplenomegaly; bowel sounds are present in all four quadrants. EXTREMITIES: No clubbing, cyanosis, or edema. SKIN: Normal; no rash; no jaundice. SPRING WINDER: No focal deficits; alert and oriented times three. (Anh Burris) Assessment and Plan Plan Assessment: - Diarrhea- states started on Friday after taking Dulcolax for constipation. Reports blood on toilet paper when she wipes, denies mark blood mixed with stool and melena. Denies recent abx prior to ones prescribed at , fever, sick contacts, history of C. Diff, recent travel CT abdomen and pelvis from today --> Moderate diverticulosis greatest in sigmoid colon with no definite inflammatory change or obstruction. Parapelvic cysts and cortical cyst in the left kidney. Small low-attenuation lesion in left lobe of the liver which is non- specific but likely represents a small cyst or cavernous hemangioma CT abdomen and pelvis at [facility] (05/16) --> findings consistent with proctocolitis with no pericolonic abscess evident. There is also extensive sigmoid diverticulosis. Previous cholecystectomy. Hepatic and renal cysts. There is pelvocaliectasis vs parapelvic cysts bilaterally, more prominent on the left side. Pt was discharged with Cipro and Flagyl. She states was unable to tolerate them. Last colonoscopy was Mar 2016 states polyps and hemorrhoids - Nausea and vomiting, began at same time as diarrhea- states initially noticed dark red blood, now bile colored. Hgb stable. Last EGD was 5 years ago and she thinks normal exam. - Abdominal pain- nonspecific- according to ER records was LLQ now seems to be more left upper with some epigastric pain. - Weight loss- states 10 lbs over the past month. - Hyperbilirubinemia- unclear significance- T bili-2. Previous cholecystectomy EGD 05/20/17 ,Found, Reflux esophagitis, Gastritis, Duodenitis, Diverticulosis Internal and external hemorrhoids, noted in labs stool occult positive PLAN: Await biopsies High-fiber diet PPI continue EGD in 2 months Continue with current supportive care If diarrhea persists okay to use antidiarrheal medications Recommend hemorrhoidal care with ointments and suppositories on discharge such as Anusol HC suppositories If rectal bleeding persists then patient will need to have hemorrhoidal therapy with colorectal surgeon Patient plan for DC tomorrow. Okay from a GI standpoint. Follow-up as an outpatient Pt has been seen and examined by myself and Dr. Gale and this note is written on his behalf (Anh Burris) Physician Comments Patient seen and examined Agree with above Continue with current supportive care Monitor labs With most of her bilirubin being indirect this is most suggestive of Gilbert's syndrome Patient follow-up with GI post discharge Not much to add from a GI standpoint we will sign off (Arcadio Gale MD) Anh Burris May 21, 2017 13:52 Arcadio Gale MD May 21, 2017 22:43
[2017-05-21 14:34] LABS: HEMATOCRIT 41.3 % (35.0-46.0); HEMOGLOBIN 14.4 GM/DL (11.6-15.3); MEAN CELL VOLUME 87.3 FL (80.0-100.0); MEAN CORPUSCULAR HEMOGLOBIN 30.5 PG (27.0-34.0); MEAN PLATELET VOLUME 8.1 FL (7.0-11.0); PLATELET COUNT 304 TH/MM3 (150-450); RED BLOOD COUNT 4.73 MIL/MM3 (4.00-5.30); RED CELL DISTRIBUTION WIDTH 12.4 % (11.6-17.2); WHITE BLOOD COUNT 9.4 TH/MM3 (4.0-11.0)
[2017-05-21 15:05] LABS: ALBUMIN 3.2 GM/DL (3.4-5.0); ALKALINE PHOSPHATASE 64 U/L (45-117); ALT (GPT) 22 U/L (10-53); AST (GOT) 17 U/L (15-37); BICARBONATE 24.4 MEQ/L (21.0-32.0); BLOOD UREA NITROGEN 12 MG/DL (7-18); CHLORIDE 107 MEQ/L (98-107); CREATININE 1.05 MG/DL (0.50-1.00); GLOMERULAR FILTRATION RATE 54 ML/MIN (>89); GLUCOSE,RANDOM 101 MG/DL (74-106); SODIUM (NA) 140 MEQ/L (136-145); TOTAL BILIRUBIN ADULT 1.2 MG/DL (0.2-1.0); TOTAL PROTEIN 6.8 GM/DL (6.4-8.2)
[2017-05-21 16:00] VITALS: BP 156/93; PULSE 90; RESP 17; TEMP 97.3; O2SAT 99
[2017-05-21] MEDS ORDERED: POTASSIUM CHLORIDE 20 MEQ CONTROLLED RELEASE TAB PO ONE (16:30)
[2017-05-21 20:00] VITALS: BP 137/87; PULSE 88; RESP 16; TEMP 98.1; O2SAT 96
[2017-05-22] VITALS: BP 122/73; PULSE 83; RESP 16; TEMP 98.9; O2SAT 96
[2017-05-22] MEDS: metroNIDAZOLE 500 MG INJ 100 ML IV SCH ×2 (02:18→09:02)
[2017-05-22 06:46] LABS: ALBUMIN 2.9 GM/DL (3.4-5.0); ALT (GPT) 17 U/L (10-53); AST (GOT) 14 U/L (15-37); BICARBONATE 24.7 MEQ/L (21.0-32.0); BLOOD UREA NITROGEN 10 MG/DL (7-18); CALCIUM 8.6 MG/DL (8.5-10.1); CHLORIDE 108 MEQ/L (98-107); CREATININE 0.92 MG/DL (0.50-1.00); GLOMERULAR FILTRATION RATE 63 ML/MIN (>89); GLUCOSE,RANDOM 94 MG/DL (74-106); SODIUM (NA) 140 MEQ/L (136-145)
[2017-05-22 06:48] LABS: ALKALINE PHOSPHATASE 55 U/L (45-117); TOTAL BILIRUBIN ADULT 0.9 MG/DL (0.2-1.0); TOTAL PROTEIN 6.3 GM/DL (6.4-8.2)
[2017-05-22] MEDS ORDERED: POTASSIUM CHLORIDE 20 MEQ CONTROLLED RELEASE TAB PO ONE (07:30)
[2017-05-22 08:00] VITALS: BP 130/87; PULSE 95; RESP 18; TEMP 97.9; O2SAT 97
[2017-05-22] MEDS: CIPROFLOXACIN 400 MG PREMIX 200 ML IV SCH (08:00)
--- NOTE | 2017-05-22 08:38 | HHI.FPPN ---
Subjective Remarks No acute issues overnight. Vitals are stable, patient remains afebrile. She is tolerating PO today without difficulty. She denies any abdominal pain, nausea, vomiting, fever, chills, chest pain or shortness of breath. She feels ready to go home today. (Sarah Banks MD, R3) Objective Vitals Vital Signs Date Time Temp Pulse Resp B/P (MAP) Pulse Ox O2 Delivery O2 Flow Rate FiO2 05/22/17 08:00 97.9 95 18 130/87 (101) 97 05/22/17 00:00 98.9 83 16 122/73 (89) 96 05/21/17 20:00 98.1 88 16 137/87 (104) 96 05/21/17 16:00 97.3 90 17 156/93 (114) 99 05/21/17 12:00 97.6 77 17 166/96 (119) 99 I/O 05/21/17 05/21/17 05/21/17 05/22/17 05/22/17 05/22/17 07:00 15:00 23:00 07:00 15:00 23:00 Intake Total 580 ml 1300 ml 1302 ml 540 ml Balance 580 ml 1300 ml 1302 ml 540 ml Intake Oral 580 ml 1302 ml 240 ml IV Total 1300 ml 300 ml # Voids 3 3 3 # Bowel Movements 1 1 0 (Sarah Banks MD, R3) Result Diagram: 05/21/17 1401 05/22/17 0430 Imaging Last Impressions Abdomen/Pelvis CT 05/19/17 1235 Signed Impressions: Service Date/Time: Friday, May 19, 2017 13:19 - CONCLUSION: 1. Moderate diverticulosis greatest in the sigmoid colon with no definite inflammatory change or obstruction. 2. Parapelvic cysts and cortical cyst in the left kidney. 3. Small low-attenuation lesion in the left lobe of the liver which is nonspecific but likely represents a small cyst or cavernous hemangioma. 4. Status post cholecystectomy. Jm Lovelace MD Objective Remarks Gen -- awake, alert and attentive, she appears comfortable HEENT - EOM intact PULM - clear bilaterally, no wheezing, no crackles CARDS -- rrr, no murmurs ABD -- soft, non-tender, non-distended, bowel sounds present, no rebound, no guarding EXT - normal ROM NEURO - speech is normal, grossly intact SKIN - no lesions, no rashes (Sarah Banks MD, R3) A/P Assessment and Plan Patient is a 57 y/o F admitted for acute diverticulitis. Discharge Planning Anticipate discharge home today. (Sarah Banks MD, R3) Attending Attestation Patient seen and examined. Case reviewed and discussed with the resident team. Agree with plan of care as discussed with me and documented in the resident note. Patient pain has resolved. She is tolerating her diet. Abd exam -- soft , no tenderness, good bowel sounds. DC to home is appropriate. (Melinda Kiran MD) Problem List: (1) Acute diverticulitis ICD Codes: K57.92 - Diverticulitis of intestine, part unspecified, without perforation or abscess without bleeding Status: Acute Plan: Improving. Tolerating Regular diet IV cipro q12H and flagyl q8H, will transition to PO for DC today Tylenol for pain control (2) Hemorrhoids ICD Codes: K64.9 - Unspecified hemorrhoids Status: Chronic Plan: Hemoccult positive GI consulted- EGD and flexible sigmoidoscopy on 05/20: Distal esophageal mucosal erythema, and patchy erythema in the antrum and duodenum - impression of GERD, gastritis, and duodenitis Severe diverticulosis of sigmoid region w/internal and external hemorrhoids Appreciate GI recs: Continue PPI and Anusol HC supp for hemorrhoids Follow-up with GI as outpatient (3) FEN Plan: Fluids: PO Electrolytes: replete as needed Nutrition: reg diet DVT prophylaxis: not indicated (Sarah Banks MD, R3) Problem Qualifiers (1) Hemorrhoids: Qualified Codes: K64.9 - Unspecified hemorrhoids Sarah Banks MD, R3 May 22, 2017 08:38 Melinda Kiran MD May 22, 2017 13:16
[2017-05-22] MEDS ORDERED: METR1TAB76 PO (08:41)
[2017-05-22] MEDS ORDERED: CIPR500T2 PO (08:41)
--- NOTE | 2017-05-22 08:42 | HHI.DCPOC ---
Discharge Care Plan Diagnosis: (1) Hemorrhoids (2) Acute diverticulitis Goals to Promote Your Health * To prevent worsening of your condition and complications * To maintain your health at the optimal level Directions to Meet Your Goals Take your medications as prescribed Follow your dietary instruction Follow activity as directed Keep your appointments as scheduled Take your immunizations and boosters as scheduled If your symptoms worsen call your PCP, if no PCP go to Urgent Care Center or Emergency Room Smoking is Dangerous to Your Health. Avoid second hand smoke Call the 24-hour hour crisis hotline for domestic abuse at Sarah Banks MD, R3 May 22, 2017 08:42
[2017-05-22] MEDS ORDERED: HYDR25SU4 PR (08:45)
[2017-05-22] MEDS ORDERED: PANT40TA3 PO (08:45)
[2017-05-22] MEDS ORDERED: PANTOPRAZOLE SOD 40 MG DELAYED RELEASE TAB PO SCH (09:00)
[2017-05-22] MEDS: SODIUM CHLORIDE 0.9% FLUSH 10 ML FLUSH IV FLUSH SCH (09:00)
--- NOTE | 2017-05-22 09:02 | HHI.DS ---
Discharge Summary Admission Date May 19, 2017 at 15:23 Discharge Date: May 22, 2017 Admitting Diagnosis abdominal pain, dehydration (1) Acute diverticulitis Diagnosis: Principal Plan: Improving. Tolerating Regular diet IV cipro q12H and flagyl q8H, will transition to PO for DC today Tylenol for pain control ICD Codes: K57.92 - Diverticulitis of intestine, part unspecified, without perforation or abscess without bleeding Status: Acute (2) Hemorrhoids Plan: Hemoccult positive GI consulted- EGD and flexible sigmoidoscopy on 05/20: Distal esophageal mucosal erythema, and patchy erythema in the antrum and duodenum - impression of GERD, gastritis, and duodenitis Severe diverticulosis of sigmoid region w/internal and external hemorrhoids Appreciate GI recs: Continue PPI and Anusol HC supp for hemorrhoids Follow-up with GI as outpatient ICD Codes: K64.9 - Unspecified hemorrhoids Status: Chronic (3) FEN Plan: Fluids: PO Electrolytes: replete as needed Nutrition: reg diet DVT prophylaxis: not indicated Consultants GI Procedures 04/22/17: EGD with biopsy followed by flexible sigmoidoscopy with biopsy by Dr. Gale Brief History On admission: 57 y/o presenting w/abdominal pain, nausea, and vomiting. Pain in upper abdomen started Friday. States she had been constipated recently and took Ducolex when she went home; afterwards, she experienced vomiting and diarrhea for two days.Vomited last on Friday. Afterwards, went to the ER in [facility], was given anti-nausea medication and a course of cipro and flagyl oral. Had severe pain after taking meds, went back to the ER. XR was performed, no change was seen, and she reports she was discharged home. Stayed home the next day, then decided to come to the hospital. Took antibiotics on Friday, Friday, Friday - stopped it Friday afternoon and felt her abdominal pain improve. +poor appetite. No fevers, SOB, chest pain (other than anxiety). Noted black appearance in vomit and bright red blood from bowel movement x1 on Friday. Has never had diverticulitis or any GI issues before. Diarrhea has mostly resolved. Continues to have abdominal pain and nausea. No further vomiting. CBC/BMP: 05/21/17 1401 05/22/17 0430 Significant Findings Laboratory Tests Test 05/19/17 12:50 05/19/17 13:00 05/20/17 03:46 05/20/17 04:30 White Blood Count 12.5 TH/MM3 (4.0-11.0) Red Blood Count 5.74 MIL/MM3 (4.00-5.30) Hemoglobin 17.2 GM/DL (11.6-15.3) Hematocrit 49.7 % (35.0-46.0) Neutrophils (%) (Auto) 72.1 % (16.0-70.0) Neutrophils # (Auto) 9.0 TH/MM3 (1.8-7.7) Monocytes # (Auto) 1.0 TH/MM3 (0-0.9) Activated Partial Thromboplast Time 23.1 SEC (24.3-30.1) Creatinine 1.18 MG/DL (0.50-1.00) Total Protein 8.3 GM/DL (6.4-8.2) Total Bilirubin 2.0 MG/DL (0.2-1.0) 1.5 MG/DL (0.2-1.0) Sodium Level 135 MEQ/L (136-145) Potassium Level 3.3 MEQ/L (3.5-5.1) Estimat Glomerular Filtration Rate 47 ML/MIN (>89) 66 ML/MIN (>89) Urine Turbidity HAZY (CLEAR) Urine Protein 30 mg/dL (NEG-TRACE) Urine Ketones 40 mg/dL (NEG) Urine Occult Blood MOD (NEG) Urine Leukocyte Esterase SMALL (NEG) Monocytes (%) (Auto) 9.0 % (0.0-8.0) Albumin 3.1 GM/DL (3.4-5.0) Direct Bilirubin 0.3 MG/DL (0.0-0.2) Test 05/20/17 19:38 05/21/17 14:01 05/22/17 04:30 Creatinine 1.05 MG/DL (0.50-1.00) Albumin 3.2 GM/DL (3.4-5.0) 2.9 GM/DL (3.4-5.0) Total Bilirubin 1.2 MG/DL (0.2-1.0) Potassium Level 3.1 MEQ/L (3.5-5.1) 3.4 MEQ/L (3.5-5.1) Estimat Glomerular Filtration Rate 54 ML/MIN (>89) 63 ML/MIN (>89) Total Protein 6.3 GM/DL (6.4-8.2) Aspartate Amino Transf (AST/SGOT) 14 U/L (15-37) Chloride Level 108 MEQ/L (98-107) Imaging Last Impressions Abdomen/Pelvis CT 05/19/17 1235 Signed Impressions: Service Date/Time: Friday, May 19, 2017 13:19 - CONCLUSION: 1. Moderate diverticulosis greatest in the sigmoid colon with no definite inflammatory change or obstruction. 2. Parapelvic cysts and cortical cyst in the left kidney. 3. Small low-attenuation lesion in the left lobe of the liver which is nonspecific but likely represents a small cyst or cavernous hemangioma. 4. Status post cholecystectomy. Jm Lovelace MD PE at Discharge Gen -- awake, alert and attentive, she appears comfortable HEENT - EOM intact PULM - clear bilaterally, no wheezing, no crackles CARDS -- rrr, no murmurs ABD -- soft, non-tender, non-distended, bowel sounds present, no rebound, no guarding EXT - normal ROM NEURO - speech is normal, grossly intact SKIN - no lesions, no rashes Hospital Course Patient is a 57-year-old female who presented with abdominal pain and was admitted for acute diverticulitis. She had been diagnosed with diverticulitis based on CT findings at an outside facility and started on Cipro and Flagyl. She was unable to tolerate these medications by mouth and presented to [facility]. She was started on IV Cipro and Flagyl on admission. GI was consulted and performed an EGD with biopsy followed by flexible sigmoidoscopy with biopsy. Findings were significant for reflux esophagitis, gastritis, duodenitis, diverticulosis, internal and external hemorrhoids. GI recommended high-fiber diet, PPI P EGD in 2 months, and continued supportive care. They also recommended hemorrhoidal care with ointment and suppositories on discharge. Patient was started on Protonix 40 mg by mouth daily. After IV fluid hydration and antibiotics, her symptoms significantly improved and she was able to tolerate by mouth. She is discharged home to complete a ten-day course of Cipro and Flagyl by mouth and to continue Protonix 40 mg by mouth daily. She will follow up with GI and her PCP as an outpatient. Pt Condition on Discharge: Stable Discharge Disposition: Discharge Home Discharge Instructions DIET: Follow Instructions for: As Tolerated, No Restrictions Activities you can perform: Regular-No Restrictions Follow up Referrals: Gastroenterology - 2 Weeks with Mile Campos MD PCP Follow-up - 1 Week New Medications: Ciprofloxacin (Ciprofloxacin) 500 Mg Tab 500 MG PO BID for Infection, #14 TAB 0 Refills Hydrocortisone Acetate (Rectal (Hemorrhoidal-Hc) 25 Mg Sup 25 MG NM BID PRN for HEMORRHOIDS, #30 SUPP Metronidazole (Metronidazole) 500 Mg Tab 500 MG PO TID for Infection, #21 TAB 0 Refills Pantoprazole (Pantoprazole) 40 Mg Tab 40 MG PO DAILY, #30 TAB Continued Medications: Calcium Carbonate-Cholecalciferol (Calcium 600 with Vitamin D) 600-400 mg-Unit Tab 1 TAB PO DAILY for Calcium Supplement, TAB 0 Refills Fish Oil-Cholecalciferol ([place]-3 Fish Oil/Vitamin) 1,000-1,000 Mg Cap 1 CAP PO DAILY for Nutritional Supplement, CAP 0 Refills Lovastatin (Lovastatin) 20 Mg Tab 20 MG PO DAILY for Cholesterol Management, #30 TAB 0 Refills Multivitamin-Hematinic ([place]-H) 1 Tab 1 TAB PO DAILY for Nutritional Supplement, TAB 0 Refills Sarah Banks MD, R3 May 22, 2017 09:02
== END 2017-05-22 10:56 | disposition home or self-care (01) | DRG 392 ==
LOC: NED 11:19 → NEDA 15:23 → N07A 17:43
PROVIDERS: ADMIT Family Medicine; ATTEND Family Medicine
PROC: 0DB78ZX Excision of Stomach, Pylorus, Via Natural or Artificial Opening Endoscopic, Diagnostic (ICD-10-PCS; 2017-05-20)
PROC: 0DB58ZX Excision of Esophagus, Via Natural or Artificial Opening Endoscopic, Diagnostic (ICD-10-PCS; 2017-05-20)
PROC: 0DJD8ZZ Inspection of Lower Intestinal Tract, Via Natural or Artificial Opening Endoscopic (ICD-10-PCS; 2017-05-20)
PROC: 0DB98ZX Excision of Duodenum, Via Natural or Artificial Opening Endoscopic, Diagnostic (ICD-10-PCS; principal; 2017-05-20 16:40)
PROC: 0DB88ZX Excision of Small Intestine, Via Natural or Artificial Opening Endoscopic, Diagnostic (ICD-10-PCS; 2017-05-20 16:40)
DX: K57.32 Diverticulitis of large intestine without perforation or abscess without bleeding (principal); N28.1 Cyst of kidney, acquired; K62.5 Hemorrhage of anus and rectum; K64.1 Second degree hemorrhoids; K64.4 Residual hemorrhoidal skin tags; E86.0 Dehydration; K59.00 Constipation, unspecified; R00.0 Tachycardia, unspecified; K21.0 Gastro-esophageal reflux disease with esophagitis; K29.70 Gastritis, unspecified, without bleeding; K29.80 Duodenitis without bleeding; R19.7 Diarrhea, unspecified; R63.4 Abnormal weight loss; F41.9 Anxiety disorder, unspecified; E80.4 Gilbert syndrome; K30 Functional dyspepsia; D72.829 Elevated white blood cell count, unspecified; Z87.891 Personal history of nicotine dependence; Z86.010 Personal history of colon polyps
CPT/HCPCS: 74177; 80053; 81001; 82248; 82272; 83690; 85014; 85018; 85025; 85027; 85610; 85730; 87040; 87328; 87329; 87493; 87506; 88305; 88312; 93005; 96361; 96374; C9113; J0744; J1885; J2370; J2405; J7030; Q9967